=== PATIENT | male | born 2000 | race Two or more races ===

== ENCOUNTER 2025-03-29 22:00 | Emergency (ER) | payer OTHER ==
[~2025-03-29] VITALS: Ht 190.5 cm; Wt 83.9 kg
[2025-03-29] MEDS ORDERED: ZOLOFT25 MG (22:16)
[2025-03-29] MEDS ORDERED: HYDROXYZINE (22:17)
[2025-03-30] MEDS ORDERED: HYOSCYAMINE SULFATE 0.125 MG TAB.SUBL SL STA (00:20)
[2025-03-30] MEDS ORDERED: PROMETHAZINE HCL 50 MG/ML AMPUL IM STA (00:20)
[2025-03-30] MEDS ORDERED: FAMOTIDINE/PF 20 MG/2 ML VIAL IV PUSH STA (00:20)
[2025-03-30] MEDS ORDERED: LACTOBACILLUS ACIDOPHILUS 1 CAP CAP PO STA (00:20)
[2025-03-30] MEDS ORDERED: 0.9 % SODIUM CHLORIDE 1,000 ML IV ONE (00:30)
[2025-03-30 01:24] LABS: BASO % 0.3 % (0.1-1.2); EOS # 0.06 (0.04-0.54); EOS % 0.9 % (0.7-7.0); LYMPH # 1.44 (1.18-3.74); LYMPH % 21.8 % (19.3-53.1); MEAN PLATELET VOLUME 11.00 fl (9.4-12.4); MONO # 0.94 (0.24-0.82); NEUT # 4.13 (1.56-6.13); NEUT % 62.6 % (34.0-71.1); RED CELL DISTRIBUTION WIDTH 12.8 % (11.6-14.4)
[2025-03-30 01:52] LABS: MONO % 14.2 % (4.7-12.5)
[2025-03-30 02:06] LABS: BUN CREA RATIO 10.0 (7.0-25.0); CREATININE SERUM 1.0 mg/dL (0.70-1.30); GFR 91.04; GLUCOSE FASTING 92.0 mg/dL (65-100); OSMOLALITY SERUM 278.0 MOSM/KG (275-295)
[2025-03-30 02:07] LABS: URINE APPEARANCE Clear; URINE BILIRRUBIN Negative (NEGATIVE); URINE BLOOD Negative; URINE COLOR Yellow; URINE GLUCOSE Negative (NEGATIVE); URINE KETONE 15 (NEGATIVE); URINE LEUKOCYTE Trace; URINE NITRATE Negative; URINE PROTEIN Negative (NEGATIVE); URINE UROBILINOGEN 0.2 E.U./dl
[2025-03-30 02:11] LABS: URINE BACTERIA 4.5 uL (0.0-1933); URINE WBC 9.4 uL (0.0-23.2)
[2025-03-30 02:13] LABS: URINE CAST 0.00 uL (0.0-1.40); URINE EPITHELIAL CELLS 0.0 uL (0.0-38.8); URINE RBC 1.8 uL (0.0-20.8)
[2025-03-30] MEDS ORDERED: ZOFRAN8 MG PO (04:27)
[2025-03-30] MEDS ORDERED: INTESTINEX680 M1 PO (04:27)
== END 2025-03-30 04:36 ==
LOC: ER 22:01
PROVIDERS: General Practice
DX: R10.84 Generalized abdominal pain (principal); R19.8 Other specified symptoms and signs involving the digestive system and abdomen